=== PATIENT | female | born 1980 | race American Indian/Alaskan Native ===

== ENCOUNTER 2017-06-05 09:27 | Day surgery (SDC) | payer MEDICAID ==
--- NOTE | 2017-06-03 13:57 | History and Physical Report ---
History of Present Illness Date of examination: 06/03/17 Chief complaint: Dysfunctional Uterine Bleeding History of present illness: Pt is a 36 year old -[place] female who presents for surgical management of dysfunctional uterine bleeding. She had an endometrial biopsy on revealing proliferative endometrium with stroma breakdown and focal features suggestive of an endometrial polyp. 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 Ultrasound: other (04/18/17: Uterus anteverted 10.0x6.0x6.6 cm. Small sumucosal fibroid at fundus 1.9 cm. EMS 7 mm. Few scattered follicles in both ovaries. No free fluid in cul de sac. ) Assessment and Plan A: Dysfunctional Uterine Bleeding Fibroid Uterus Suspected Endometrial Polyp P: Proceed with hysteroscopy, dilation and curettage, Novasure endometrial ablation and other indicated procedures
[~2017-06-05 09:27] MED LIST: ANCEF/STERILE WATER 2 GM/20 ML 2 GM/20 ML SYRINGE IV NR
[2017-06-05] MEDS ORDERED: DIPRIVAN 10 MG/ML IV ONE ×2 (10:39→11:32)
[2017-06-05] MEDS ORDERED: XYLOCAINE MPF 2% ONE (10:40)
[2017-06-05] MEDS ORDERED: DILAUDID ONE (10:40)
[2017-06-05] MEDS ORDERED: ZOFRAN IV PRN (10:49)
--- NOTE | 2017-06-05 10:49 | Anesthesia Consultation ---
Anesthesia Consult and Med Hx Date of service: 06/05/17 - Airway Anesthetic Teeth Evaluation: Good ROM Head & Neck: Adequate Mental/Hyoid Distance: Adequate Mallampati Class: Class II - Pulmonary Exam CTA: Yes - Cardiac Exam Cardiac Exam: RRR - Pre-Operative Health Status ASA Pre-Surgery Classification: ASA2 Proposed Anesthetic Plan: General - Pulmonary Hx Smoking: No Hx Asthma: No Hx Respiratory Symptoms: No SOB: No COPD: No Home Oxygen Therapy: No Hx Pneumonia: No Hx Sleep Apnea: No - Cardiovascular System Hx Heart Attack/AMI: No Hx Angina: No Hx Percutaneous Transluminal Coronary Angioplasty (PTCA): No Hx Cardia Arrhythmia: No Hx Pacemaker: No Hx Internal Defibrillator: No Hx Valvular Heart Disease: No Hx Heart Murmur: No Hx Peripheral Vascular Disease: No - Central Nervous System Hx Seizures: No CVA: No Hx Back Pain: No Hx Psychiatric Problems: No - Gastrointestinal Hx Ulcer: No Hx Gastroesophageal Reflux Disease: No - Endocrine Hx Renal Disease: No Hx End Stage Renal Disease: No Hx Cirrhosis: No Hx Insulin Dependent Diabetes: No Hx Non-Insulin Dependent Diabetes: No Hx Hypothyroidism: No Hx Hyperthyroidism: No - Hematic Hx Anemia: No Hx Sickle Cell Disease: No - Other Systems Hx Alcohol Use: Yes (occas) Hx Substance Use: Yes (marijuana @ hs) Hx Cancer: No
[2017-06-05 10:53] LABS: Hematocrit 34.3 % (30.3-42.9); Hemoglobin 11.6 gm/dl (10.1-14.3); Mean Corpuscular HGB Conc 34 % (30-34); Mean Corpuscular Hemoglobin 28 pg (28-32); Mean Corpuscular Volume 82 fl (79-97); Platelet Count 266 K/mm3 (140-440); Red Blood Count 4.18 M/mm3 (3.65-5.03); Red Cell Distribution Width 13.7 % (13.2-15.2)
[2017-06-05] MEDS ORDERED: VERSED IV NR (11:00)
[2017-06-05] MEDS ORDERED: LACTATED RINGERS 1,000 ML IV SCH (11:00)
[2017-06-05] MEDS ORDERED: SILVER NITRATE TP ONE ×2 (11:58→12:01)
[2017-06-05] MEDS ORDERED: NACL 0.9% IR ONE ×2 (12:00)
[2017-06-05] MEDS ORDERED: ZOFRAN ONE (12:01)
[2017-06-05] MEDS ORDERED: TORADOL ONE (12:25)
--- NOTE | 2017-06-05 12:27 | Short Stay Summary ---
Short Stay Documentation Date of service: 06/05/17 - History H&P: dictated Social history: no significant social history - Allergies and Medications Current Medications: Allergies shellfish derived Allergy (Verified 06/03/17 17:32) Anaphylaxis Home Medications Medication Instructions Recorded Confirmed Last Taken Type No Known Home Medications [No 06/03/17 06/03/17 Unknown History Reported Home Medications] Active Medications Hydromorphone HCl (Dilaudid) 0.5 mg IV Q10MIN PRN PRN Reason: Pain , Severe (7-10) Cefazolin Sodium (Ancef/Sterile Water 2 Gm/20 Ml) 2 gm in 20 mls @ 80 mls/hr IV PREOP NR; Protocol Stop: 06/05/17 23:59 Lactated Ringer's (Lactated Ringers) 1,000 mls @ 75 mls/hr IV DIRECT VALDEMAR Last Admin: 06/05/17 11:00 Dose: 75 mls/hr Midazolam HCl (Versed) 2 mg IV PREOP NR Stop: 06/05/17 23:59 Last Admin: 06/05/17 11:02 Dose: 2 mg Ondansetron HCl (Zofran) 4 mg IV ONCE PRN PRN Reason: Nausea And Vomiting - Physical exam Breasts: deferred - Brief post op/procedure progress note Date of procedure: 06/05/17 Pre-op diagnosis: 1) Dysfunctional Uterine Bleeding 2) Suspected Endometrial Polyp Post-op diagnosis: same Procedure: Hysteroscopy, Dilation and Curettage, Novasure endometrial ablation Anesthesia: GETA (with LMA) Findings: 1) Anteverted 10 wk sized uterus that sounded to 9 cm 2) Proliferative endometrium Surgeon: SHAYLA HERNANDEZ Estimated blood loss: minimal (10 mL) Pathology: list (endometrial curettings) Specimen disposition: to lab Condition: stable - Hospital course Hospital course: Pt tolerated dilation and curettage, hysteroscopy and Novasure endometrial ablation well. She was observed in the PACU until she met discharge criteria. She will follow up in office in 2 weeks. - Disposition Condition at discharge: Stable Disposition: - TO HOME OR SELFCARE - Discharge Diagnoses (1) DUB (dysfunctional uterine bleeding) Status: Acute (2) Obesity Status: Acute Short Stay Discharge Plan Activity: other (Nothing in vagina x 4 weeks ) Weight Bearing Status: Full Weight Bearing Diet: regular Follow up with: PRIMARY CARE, [Primary Care Provider] - 7 Days SHAYLA HERNANDEZ MD [Staff Physician] - 06/19/17 (post op exam- please call for appt ) Prescriptions: Ibuprofen [Motrin] 800 mg PO Q8HR PRN #30 tablet PRN Reason: Pain oxyCODONE /ACETAMINOPHEN [Percocet 5/325] 1 tab PO Q6HR PRN #20 tablet PRN Reason: Pain
--- NOTE | 2017-06-05 12:27 | Operative Report ---
Operative Report Operative Report: Date of procedure: June 05, 2017 Preoperative diagnosis: 1) Dysfunctional Uterine Bleeding 2) Fibroid Uterus 3) Obesity Postoperative diagnosis: Same Procedure: 1)Diagnostic Hysteroscopy 2)Dilation and Curettage 3)NovaSure Endometrial Ablation Surgeon: Sheela Ramon M.D. Findings: 1) Small anteverted mobile uterus that sounded to 9 cm 2) Proliferative endometrium on hysteroscopy Anesthesia: General with LMA Estimated blood loss: Minimal (10 mL ) IV fluid: 400 mL Specimens: endometrial curettings to pathology Drains: None Complications: None Disposition: Stable to PACU Indications for procedure: The patient is a 36 year old -[place] female who presents for surgical management of dysfunctional uterine bleeding. Operation in detail: After the risks, benefits, alternatives and complications of the procedure were explained to the patient, she gave informed consent for the procedure. She was subsequently taken to the operating room and placed in the dorsal supine position. SCDs noted to be in place and functioning. Gen. anesthesia was then induced without difficulty. The patient was in placement dorsal lithotomy position and prepped and draped in normal sterile fashion. A timeout was performed. An exam under anesthesia was performed yielding a mobile anteverted uterus. The bladder was then catheterized and drained of urine. An open sided speculum was then placed into the vagina for adequate visualization of the cervix. The anterior lip of the cervix was then grasped with a tenaculum for traction. The cervical length was then sounded to 4.5 cm and the uterus was then sounded to 9 cm. The cavity length was then noted to be 4.5 cm. At this time a hysteroscope was introduced to visualize the endometrial cavity which revealed proliferative endometrium. A sharp endometrial curettage was then performed and the curettings were sent to pathology. Attention was then turned to the endometrial ablation. At this time Adhikari dilators were used to sequentially dilate the cervix to a # 25. Next the disposable NovaSure device was connected to the RF controller. The NovaSure disposable device was deployed to the locked position and noted to fully extend. The device was then placed in the unlocked position. The disposable device was then inserted into the uterine cavity with traction on the tenaculum. The device was then seated per protocol. After moving the device back 0.5 cm, the device was moved superiorly and inferiorly and rotated clockwise and counterclockwise to 45. The cavity width at this time was noted to be 4.0 cm. The cervical collar was then advanced to the cervix. The cavity assessment was then initiated and passed. The ablation procedure was then initiated and lasted for 1 minute and 59 seconds. The cervical collar was moved away from the cervix, the device was moved to the unlocked position, and the disposable NovaSure device was removed from the uterine cavity. The hysteroscope was reintroduced to visualize the charred endometrial cavity.At this time the single-tooth tenaculum was removed from the cervix. Silver nitrate and pressure were placed on the puncture sites to achieve hemostasis. Hemostasis was noted. All instruments were removed from the vagina atraumatically and the procedure was ended. The patient was placed into the dorsal supine position and extubated without difficulty. She was subsequently taken to the PACU in stable condition. She tolerated the procedure well. All counts were correct 2.
[2017-06-05] MEDS ORDERED: TORADOL IV ONE (12:28)
[2017-06-05] MEDS: DILAUDID IV PRN ×3 (12:30→13:49)
[2017-06-05] MEDS ORDERED: PERCOCET 5/325 ONE (12:55)
[2017-06-05] MEDS ORDERED: PERCOCET 5/325 PO PRN (12:58)
[2017-06-05 18:04] VITALS: BP 125/79
== END 2017-06-05 14:50 | disposition home or self-care (01) ==
LOC: OR 09:27
PROVIDERS: ATTEND Obstetrics & Gynecology
DX: D25.9 Leiomyoma of uterus, unspecified (principal); E66.9 Obesity, unspecified; N85.8 Other specified noninflammatory disorders of uterus; Z98.51 Tubal ligation status; Z68.33 Body mass index [BMI] 33.0-33.9, adult
CPT/HCPCS: 36415; 58563; 81025; 85027; 88305; A4217; J0690; J1170; J1885; J2250; J2405; J2704; J7120

== ENCOUNTER 2017-08-28 06:22 | Observation (INO) | payer MEDICAID ==
[2017-08-22 10:34] LABS: Hematocrit 39.7 % (30.3-42.9); Hemoglobin 13.2 gm/dl (10.1-14.3); Mean Corpuscular HGB Conc 33 % (30-34); Mean Corpuscular Hemoglobin 28 pg (28-32); Mean Corpuscular Volume 83 fl (79-97); Platelet Count 231 K/mm3 (140-440); Red Blood Count 4.78 M/mm3 (3.65-5.03); Red Cell Distribution Width 13.3 % (13.2-15.2)
[2017-08-22 11:44] LABS: Basophils % (Manual) 0 % (0.0-1.8); RBC Morphology Normal; Total Cells Counted 100
[~2017-08-28 06:22] MED LIST changes: -ANCEF/STERILE WATER 2 GM/20 ML 2 GM/20 ML SYRINGE IV NR; +VERSED IV NR
--- NOTE | 2017-08-28 06:40 | History and Physical Report ---
History of Present Illness Date of examination: 08/28/17 Chief complaint: dysfunctional uterine bleeding History of present illness: 36y/ with a history of dysfunctional uterine bleeding. The patient has undergone an endometrial ablation without significant improvement in her symptoms. Pelvic ultrasound demonstrates a normal size uterus suggestive of adenomyosis. The patient elects to undergo definitive surgical management. Past History Past Medical History: no pertinent history Past Surgical History: other (Novasure; BTL) Social history: single - Obstetrical History : 2 Para: 2 Hx # Term Pregnancies: 2 Number of Pregnancies: 0 Spontaneous Abortions: 0 Induced : 0 Number of Living Children: 2 Medications and Allergies Allergies Allergy/AdvReac Type Severity Reaction Status Date / Time shellfish derived Allergy Anaphylaxis Verified 08/13/17 13:44 Home Medications Medication Instructions Recorded Confirmed Last Taken Type No Known Home Medications [No 08/13/17 08/13/17 Unknown History Reported Home Medications] Active Meds: Active Medications Lactated Ringer's (Lactated Ringers) 1,000 mls @ 100 mls/hr IV DIRECT VALDEMAR Midazolam HCl (Versed) 2 mg IV PREOP NR Stop: 08/28/17 23:59 Review of Systems All systems: negative Genitourinary: vaginal bleeding, pelvic pain - Vital Signs Vital signs: Vital Signs Temp Pulse Resp BP 99.2 F 58 L 16 120/78 08/22/17 09:50 08/22/17 09:50 08/22/17 09:50 08/22/17 09:50 Temp Pulse Resp BP Pulse Ox 99.2 F 58 L 16 120/78 08/22/17 09:50 08/22/17 09:50 08/22/17 09:50 08/22/17 09:50 - Physical Exam Breasts: Positive: deferred Cardiovascular: Regular rate Lungs: Positive: Clear to auscultation Abdomen: Positive: normal appearance Results Result Diagrams: 08/22/17 10:00 All other labs normal. Assessment and Plan - Patient Problems (1) DUB (dysfunctional uterine bleeding) Current Visit: No Status: Acute (2) Adenomyosis Current Visit: Yes Status: Acute Plan to address problem: proceed with a robotic hysterectomy and salpingectomy
[2017-08-28] MEDS ORDERED: ANCEF/STERILE WATER 2 GM/20 ML 2 GM/20 ML SYRINGE IV NR (07:00)
--- NOTE | 2017-08-28 07:33 | Anesthesia Day of Surgery ---
Anesthesia Day of Surgery - Day of Surgery Patient Examined: Yes Patient H&P Reviewed: Yes Patient is NPO: Yes Beta Blockers: No Cardiac Clearance: Yes Pulmonary Clearance: Yes Reji's Test: N/A
--- NOTE | 2017-08-28 07:33 | Anesthesia Consultation ---
Anesthesia Consult and Med Hx Date of service: 08/28/17 - Airway Anesthetic Teeth Evaluation: Good ROM Head & Neck: Adequate Mental/Hyoid Distance: Adequate Mallampati Class: Class II Intubation Access Assessment: Probably Good - Pulmonary Exam CTA: Yes - Cardiac Exam Cardiac Exam: RRR - Pre-Operative Health Status ASA Pre-Surgery Classification: ASA1 Proposed Anesthetic Plan: General Nerve Block: TAP - Pre-Anesthesia Comment Pre-Anesthesia Comments: 36y F otherwise healthy for Robotic hysterectomy - Pulmonary Hx Smoking: No Hx Respiratory Symptoms: No - Cardiovascular System Hx Hypertension: No Hx Coronary Artery Disease: No Hx Cardia Arrhythmia: No - Central Nervous System Hx Seizures: No CVA: No Hx Psychiatric Problems: No - Gastrointestinal Hx Gastroesophageal Reflux Disease: No - Endocrine Hx Renal Disease: No Hx Liver Disease: No Hx Insulin Dependent Diabetes: No Hx Non-Insulin Dependent Diabetes: No - Other Systems Hx Alcohol Use: Yes (occas) Hx Substance Use: Yes (marijuana @ hs) Hx Cancer: No
[2017-08-28] MEDS ORDERED: SUBLIMAZE IV PRN (07:34)
[2017-08-28] MEDS ORDERED: MARCAINE 0.5% INFILTRATI ONE (09:41)
[2017-08-28] MEDS ORDERED: GELFOAM POWDER 1GM MM ONE (09:41)
[2017-08-28] MEDS ORDERED: NACL 0.9% IR ONE ×2 (09:41)
[2017-08-28] MEDS ORDERED: THROMBIN (BOVINE) TP ONE (09:41)
[2017-08-28] MEDS ORDERED: NEOSPORIN GU IR ONE (09:41)
[2017-08-28] MEDS ORDERED: NARCAN 0.4 MG/1 ML IV PRN (10:09)
[2017-08-28] MEDS ORDERED: MILK OF MAGNESIA PO PRN (10:11)
[2017-08-28] MEDS ORDERED: AMBIEN PO PRN (10:11)
[2017-08-28] MEDS ORDERED: TYLENOL PO PRN (10:11)
[2017-08-28] MEDS ORDERED: MOTRIN PO PRN (10:11)
[2017-08-28] MEDS ORDERED: PERCOCET 5/325 PO PRN (10:11)
[2017-08-28] MEDS ORDERED: ZOFRAN IV PRN ×2 (10:11→10:12)
[2017-08-28] MEDS ORDERED: DEMEROL IV PRN (10:12)
[2017-08-28] MEDS ORDERED: TORADOL IV PRN (10:12)
--- NOTE | 2017-08-28 10:16 | Operative Report ---
Operative Report Operative Report: Date of surgery: 08/28/2017 Preoperative diagnoses: Dysfunctional uterine bleeding; adenomyosis Postoperative diagnoses: Same as above Procedure: Robotic hysterectomy; bilateral salpingectomy Surgeon: Elsa Neri M.D. Clerk Stenographer: Steve Farris Anesthesia: Gen. endotracheal anesthesia Estimated blood loss: 50 mL Pathology: Uterus, cervix, bilateral tubes Indication: 36-year-old 2 with a history of dysfunctional uterine bleeding. The patient had previously undergone endometrial ablation without any significant improvement of her symptoms. She elected to undergo definitive surgical management. Procedure: The patient was taken to the operating room and given general endotracheal anesthesia without complication. She is prepped and draped in a normal sterile fashion. A bivalve speculum was placed in the patient's vagina and a single- tooth tenaculum placed on the anterior lip of the cervix. The uterus was sounded with the uterine sound. A [employer] uterine manipulator was placed in the bivalve speculum was then removed. Attention was then turned to the patient's abdomen where a millimeter supra umbilical skin incision was then made. A Veress needle was placed and peritoneal entry was verified water-filled syringe. Insufflation of the peritoneal cavity was performed with CO2 gas. The 12 mm trocar was then placed under direct visualization. An additional 8 mm trocar was placed on the patient's left and right lateral side just opposite of the supraumbilical trocar. An additional 5 mm right lateral trocar was then placed as the accessory port. The patient was then placed in steep Trendelenburg. The da Juan J robot was then engaged. General survey of the patient's abdomen and pelvis revealed normal tubes and ovaries bilaterally. No evidence of pelvic adhesions. No apparent evidence of uterine masses. A fenestrated forcep was placed in arm 2 and a vessel sealer was placed in arm 1. The surgeon then transferred to the surgical console. The mesosalpinx was then isolated on the right. The vessel sealer was used to coagulate the mesosalpinx which was then transected. The tube was transected from the ovary. The tubo-ovarian ligament was then coagulated and transected. The round ligament was then coagulated and transected also. The vesicouterine peritoneum was then entered from the patient's right side. The uterine vessels were then coagulated with the vessel sealer. The vessels were then transected . Attention was then turned to the patient's left side where the tubo-ovarian ligament and mesosalpinx were again isolated coagulated and transected. The vesical peritoneum was then entered from the left and joined in the midline. Peritoneum was reflected off of the lower uterine segment. Uterine vessels were then coagulated and then transected. The blood supply to the uterus was adequately contained, a posterior colpotomy was made. The V care ring was visualized. Posterior colpotomy was created with the monopolar scissors. The incision was continued circumferentially until anterior colpotomy was made. The cervix and uterus were amputated from the vaginal cuff. The uterus was then removed along with the tubes bilaterally through the vagina and a warm laparotomy sponge was placed and maintain the pneumoperitoneum. The vaginal cuff was then closed in a running fashion with V lock suture. Irrigation of the pelvis was performed. Gelfoam with thrombin was applied to the incision. The supraumbilical 12 mm trocar site was closed with the Valentin Matta device. The skin was then reapproximated with 4-0 Monocryl. The tissue was sent to pathology which included the cervix and uterus. The patient was then successfully extubated. She was then taken to the recovery room in stable condition. All sponge laps and needle counts were correct x2.
[2017-08-28] MEDS: DILAUDID IV PRN ×3 (10:36→13:33)
[2017-08-28] MEDS ORDERED: LACTATED RINGERS 1,000 ML IV SCH (11:00)
[2017-08-28] MEDS ORDERED: MORPHINE PCA 30MG/30ML IV SCH (11:00)
[2017-08-28] MEDS ORDERED: D5LR 1,000 ML IV SCH (11:00)
[2017-08-28] MEDS: MYLICON PO PRN ×2 (11:19→18:53)
[2017-08-28] MEDS: TORADOL IV SCH ×2 (11:22→18:49)
--- NOTE | 2017-08-28 14:21 | Post Anesthesia Evaluation ---
- Post Anesthesia Evaluation Patient Participated: Yes Airway Patent: Yes Stable Respiratory Function: Yes Nausea/Vomiting: No Temp > 96.8F: Yes Pain Manageable: Yes Adequeate Hydration: Yes Anesthesia Complications: No Block Receding Appropriately: Not Applicable Patient on Ventilator: No
[2017-08-28] MEDS: LACTATED RINGERS 1,000 ML IV SCH (18:51)
[2017-08-29] MEDS: TORADOL IV SCH ×2 (01:02→05:47)
[2017-08-29 04:05] LABS: Hematocrit 34.3 % (30.3-42.9); Hemoglobin 11.7 gm/dl (10.1-14.3)
[2017-08-29] MEDS: LACTATED RINGERS 1,000 ML IV SCH (05:47)
--- NOTE | 2017-08-29 08:26 | Progress Note ---
Assessment and Plan - Patient Problems (1) DUB (dysfunctional uterine bleeding) Current Visit: No Status: Acute Plan to address problem: Patient doing well Discharge home once she tolerates regular diet (2) Adenomyosis Current Visit: Yes Status: Acute Subjective - Subjective Date of service: 08/29/17 Interval history: The patient has tolerated a clear diet. Her pain is well controlled. Her surgery was discussed Patient reports: appetite normal, pain well controlled Objective - Vital Signs Latest vital signs: Vital Signs Temp Pulse Resp BP BP Pulse Ox 08/29/17 05:47 18 08/29/17 05:10 18 08/29/17 04:32 98.5 F 73 20 105/57 100 08/29/17 01:10 18 08/29/17 01:02 18 08/29/17 00:55 97.7 F 60 20 108/71 100 08/28/17 23:10 18 08/28/17 22:00 18 08/28/17 21:19 98.1 F 56 L 20 118/64 95 08/28/17 21:10 18 08/28/17 18:36 97 F L 78 18 110/68 08/28/17 15:15 18 08/28/17 14:20 98.6 F 79 18 121/69 97 08/28/17 12:00 66 14 112/80 08/28/17 11:45 60 10 L 118/70 100 08/28/17 11:00 54 L 11 L 111/65 98 08/28/17 10:45 69 10 L 121/64 99 08/28/17 10:30 62 13 123/76 99 08/28/17 10:25 76 20 113/48 100 08/28/17 10:19 97.2 F L 97 H 14 131/58 100 Intake and Output 08/28/17 08/29/17 08/29/17 22:59 06:59 14:59 Intake Total 1000 Output Total 1300 Balance -300 Intake: IV 1000 Lactated Ringers 1,000 ml 1000 @ 100 mls/hr IV DIRECT VALDEMAR Rx#:[id number] Output: Urine 1300 Indwelling Catheter 1300 Other: Total, Output Amount 1300 Voiding Method Indwelling Catheter Weight 87.543 kg - Exam Incision: Present: normal
--- NOTE | 2017-08-29 08:28 | Discharge Summary ---
Providers - Providers Date of Admission: 08/28/17 10:11 Date of discharge: 08/29/17 Attending physician: ANU LEE Primary care physician: LUMITE INJECTOR Hospitalization Reason for admission: other (dysfunctional uterine bleeding) Procedure: other (robotic hysterectomy and bilateral salpingectomy) Incision: normal Discharge diagnosis: other (dysfunctional uterine bleeding) Hospital course: The patient was admitted the day of surgery and underwent a robotic hysterectomy and bilateral salpingectomy. Please see operative note for details of surgery. Her postoperative course was uneventful. Condition at discharge: Good Disposition: [id number] TO HOME OR SELFCARE - Discharge Diagnoses (1) DUB (dysfunctional uterine bleeding) Status: Acute (2) Adenomyosis Status: Acute Plan - Discharge Medications Prescriptions: Docusate Sodium [Colace] 100 mg PO BID PRN #60 capsule PRN Reason: Constipation Ibuprofen [Motrin] 800 mg PO Q8HR PRN #60 tablet PRN Reason: Pain, Mild (1-3) Oxycodone HCl/Acetaminophen [Percocet 7.5/325 mg] 1 each PO Q6HR PRN #45 tablet PRN Reason: Pain - Provider Discharge Summary Activity: no sex for 6 weeks, no heavy lifting 4 weeks, no strenuous exercise Diet: routine Instructions: routine Additional instructions: [] Smoking cessation referral if applicable(refer to patient education folder for contact #) [] Refer to [facility] Booklet Call your doctor immediately for: * Fever > 100.5 * Heavy vaginal bleeding ( >1 pad per hour) * Severe persistent headache * Shortness of breath * Reddened, hot, painful area to leg or breast * Drainage or odor from incision. * Keep incision clean and dry at all times and follow doctor's instructions regarding bathing/showering Scheduled follow-up in [address] Lee - Follow up plan
[2017-08-29 15:39] VITALS: BP 129/84
== END 2017-08-29 15:00 | disposition home or self-care (01) ==
LOC: OR 06:22 → 3A 10:11 → OB 11:46
PROVIDERS: ADMIT Obstetrics & Gynecology; ATTEND Obstetrics & Gynecology
DX: N93.8 Other specified abnormal uterine and vaginal bleeding (principal); N80.0 Endometriosis of uterus
CPT/HCPCS: 36415; 58552; 84703; 85007; 85014; 85018; 85025; 86850; 86900; 86901; 88307; 96374; 96375; 96376; A4217; A4649; G0378; J1170; J1885; J2270; J7120; J7121; S2900; 88302